=== PATIENT | male | born 1980 | race Caucasian/White ===

== ENCOUNTER 2018-07-12 09:46 | Inpatient (IN) | payer SELFPAY ==
[~2018-07-12] VITALS: Ht 170.2 cm; Wt 54.9 kg
[2018-07-12] MEDS ORDERED: SODIUM CHLORIDE 0.9% 1,000 ML IV ONE (09:57)
[2018-07-12 10:31] LABS: BASOPHILS % 1.3 % (0.0-2.0); EOSINOPHILS % 1.5 % (0.0-5.0); HEMATOCRIT. 34.4 % (42.0-52.0); LYMPHOCYTES % 11.1 % (20.0-50.0); MEAN CORPUSCULAR HEMOGLOBIN 33.9 pg (28.0-32.0); MEAN CORPUSCULAR VOLUME 96.9 fL (80.0-94.0); MEAN PLATELET VOLUME 8.5 fl (7.4-10.4); MONOCYTES % 4.1 % (2.0-8.0); PLATELET 64 x1000/uL (130-400); RED BLOOD CELL COUNT 3.55 mill/uL (4.7-6.1)
[2018-07-12 10:40] LABS: INR 1.2; PROTHROMBIN TIME 11.6 sec (9.1-11.1)
[2018-07-12 11:47] LABS: CHLORIDE 99 mEq/L (98-107)
[2018-07-12 11:53] LABS: ETHANOL BLOOD 256 mg/dL
[2018-07-12 13:13] LABS: HEMATOCRIT 31.5 % (42.0-52.0); MEAN CORPUSCULAR HEMOGLOBIN 34.1 pg (28.0-32.0); MEAN CORPUSCULAR VOLUME 97.6 fL (80.0-94.0); RED BLOOD CELL COUNT 3.22 mill/uL (4.7-6.1); RED CELL DISTRIBUTION WIDTH 15.9 % (11.6-14.6)
[2018-07-12 13:20] LABS: PLATELET 42 x1000/uL (130-400)
[2018-07-12 13:33] LABS: HEMATOCRIT 31.9 % (42.0-52.0); HEMOGLOBIN 11.3 g/dL (14.0-18.0); MEAN CORPUSCULAR VOLUME 96.2 fL (80.0-94.0); RED BLOOD CELL COUNT 3.32 mill/uL (4.7-6.1); RED CELL DISTRIBUTION WIDTH 15.8 % (11.6-14.6)
[2018-07-12] MEDS ORDERED: MAGNESIUM/ALUMINUM HYDROXIDE/SIMETHICONE 30ML UDC PO PRN (17:00)
[2018-07-12] MEDS: DEXT 5%/0.45% NACL 1000ML 1,000 ML IV SCH (17:46)
[2018-07-12] MEDS ORDERED: HYDROMORPHONE HCL/PF 2MG/ML CPJ IV PRN (21:00)
[2018-07-13] VITALS: BP 141/88
[2018-07-13] MEDS: DEXT 5%/0.45% NACL 1000ML 1,000 ML IV SCH ×3 (00:07→14:11)
[2018-07-13] MEDS: LORAZEPAM 2MG/ML CPJ IV PRN ×2 (01:55→22:24)
[2018-07-13 04:00] VITALS: BP 118/77
[2018-07-13 04:57] LABS: *AMPHETAMINES SCREEN URINE NEGATIVE (NEGATIVE)
[2018-07-13 04:58] LABS: *BARBITURATES SCREEN URINE NEGATIVE (NEGATIVE); *BENZODIAZEPINES SCREEN URINE PRESUMTIVE POSITIVE (NEGATIVE); *COCAINE SCREEN URINE NEGATIVE (NEGATIVE); METHADONE URINE SCREEN NEGATIVE (NEGATIVE); OPIATES URINE SCREEN NEGATIVE (NEGATIVE); PHENCYCLIDINE URINE SCREEN NEGATIVE (NEGATIVE)
[2018-07-13 04:59] LABS: CANNABINOID URINE SCREEN NEGATIVE (NEGATIVE)
[2018-07-13 06:47] LABS: BASOPHILS % 0.9 % (0.0-2.0); EOSINOPHILS % 1.3 % (0.0-5.0); HEMATOCRIT. 31.7 % (42.0-52.0); HEMOGLOBIN. 11.2 g/dL (14.0-18.0); LYMPHOCYTES % 12.2 % (20.0-50.0); MEAN CORPUSCULAR HEMOGLOBIN 34.1 pg (28.0-32.0); MEAN CORPUSCULAR VOLUME 96.9 fL (80.0-94.0); MONOCYTES % 7.2 % (2.0-8.0); NEUTROPHILS % 78.4 % (40.0-76.0); RED BLOOD CELL COUNT 3.27 mill/uL (4.7-6.1); RED CELL DISTRIBUTION WIDTH 15.6 % (11.6-14.6)
[2018-07-13 07:06] LABS: CHLORIDE 96 mEq/L (98-107)
[2018-07-13 07:17] LABS: PHOSPHORUS 2.4 mg/dL (2.5-4.9)
[2018-07-13 07:38] LABS: PLATELET 41 x1000/uL (130-400)
[2018-07-13 08:00] VITALS: BP 122/87
[2018-07-13] MEDS: PANTOPRAZOLE SODIUM 40 MG/VIAL IV SCH (08:47)
[2018-07-13] MEDS: POTASSIUM CHLORIDE 20MEQ TABLET SR PO SCH (10:42)
[2018-07-13 12:00] VITALS: BP 134/81
[2018-07-13] MEDS ORDERED: MAGNESIUM 2 G PREMIX 50 ML IV NR (12:00)
[2018-07-13 16:00] VITALS: BP 129/89
[2018-07-13 20:00] VITALS: BP 122/82
[2018-07-14] VITALS (73 sets, daily range): BP systolic 101–190; BP diastolic 28–101
[2018-07-14] MEDS: LORAZEPAM 2MG/ML CPJ IV PRN ×4 (02:57→09:32)
[2018-07-14] MEDS ORDERED: HALOPERIDOL LACTATE 5MG/ML VIAL IM NR (03:30)
[2018-07-14] MEDS: MORPHINE SULFATE 4 MG/ML CPJ (NOT FOR IM USE) IV PRN (03:33)
[2018-07-14] MEDS ORDERED: DILTIAZEM HCL 125 MG in DEXT 5% WATER 100 ML IV PRN (04:30)
[2018-07-14] MEDS ORDERED: HALOPERIDOL LACTATE 5MG/ML VIAL IM PRN (07:15)
[2018-07-14] MEDS: DEXT 5%/0.45% NACL 1000ML 1,000 ML IV SCH ×2 (07:58→21:16)
[2018-07-14 08:45] LABS: BASOPHILS % 0.7 % (0.0-2.0); EOSINOPHILS % 2.7 % (0.0-5.0); HEMATOCRIT. 30.3 % (42.0-52.0); HEMOGLOBIN. 10.7 g/dL (14.0-18.0); LYMPHOCYTES % 8.8 % (20.0-50.0); MEAN CORPUSCULAR HEMOGLOBIN 34.3 pg (28.0-32.0); MEAN CORPUSCULAR VOLUME 97.2 fL (80.0-94.0); MEAN PLATELET VOLUME 8.7 fl (7.4-10.4); MONOCYTES % 6.7 % (2.0-8.0); NEUTROPHILS % 81.1 % (40.0-76.0); RED BLOOD CELL COUNT 3.12 mill/uL (4.7-6.1); RED CELL DISTRIBUTION WIDTH 15.6 % (11.6-14.6)
[2018-07-14] MEDS ORDERED: MAGNESIUM 2 G PREMIX 50 ML IV SCH (09:00)
[2018-07-14] MEDS ORDERED: POTASSIUM CHLORIDE INJ 40 MEQ in DEXT 5% WATER 250 ML IV SCH (09:00)
[2018-07-14 09:05] LABS: PLATELET 40 x1000/uL (130-400)
[2018-07-14] MEDS: PANTOPRAZOLE SODIUM 40 MG/VIAL IV SCH (09:20)
[2018-07-14] MEDS: THIAMINE HCL 100MG TABLET PO SCH (09:20)
[2018-07-14] MEDS: POTASSIUM CHLORIDE 20MEQ TABLET SR PO SCH (09:22)
[2018-07-14 09:49] LABS: CHLORIDE 106 mEq/L (98-107)
[2018-07-14] MEDS: FOLIC ACID 1 MG, MVI, ADULT NO.1 10 ML in DEXTROSE 5% WATER 1,000 ML IV SCH ×3 (10:26)
[2018-07-14] MEDS: CHLORDIAZEPOXIDE 25MG CAPSULE PO SCH ×2 (14:04→21:16)
[2018-07-14] MEDS: LACTULOSE 20G/30ML UDC PO SCH (18:13)
[2018-07-15] VITALS (43 sets, daily range): BP systolic 85–143; BP diastolic 43–103
[2018-07-15] MEDS: ONDANSETRON HCL 4MG/2ML INJ IV PRN (01:50)
[2018-07-15] MEDS: ACETAMINOPHEN 650MG/20.3ML UDC GT PRN (01:50)
[2018-07-15] MEDS: CHLORDIAZEPOXIDE 25MG CAPSULE PO SCH ×3 (06:03→21:48)
[2018-07-15] MEDS: DEXT 5%/0.45% NACL 1000ML 1,000 ML IV SCH (06:03)
[2018-07-15 06:04] LABS: BASOPHILS % 0.7 % (0.0-2.0); HEMATOCRIT. 30.4 % (42.0-52.0); HEMOGLOBIN. 10.6 g/dL (14.0-18.0); LYMPHOCYTES % 12.2 % (20.0-50.0); MEAN CORPUSCULAR HEMOGLOBIN 34.9 pg (28.0-32.0); MEAN PLATELET VOLUME 8.9 fl (7.4-10.4); MONOCYTES % 8.5 % (2.0-8.0); NEUTROPHILS % 72.6 % (40.0-76.0); PLATELET 58 x1000/uL (130-400); RED BLOOD CELL COUNT 3.04 mill/uL (4.7-6.1); RED CELL DISTRIBUTION WIDTH 15.6 % (11.6-14.6)
[2018-07-15 06:14] LABS: CHLORIDE 109 mEq/L (98-107)
[2018-07-15 06:40] LABS: HEPATITIS B SURFACE ANTIGEN NEGATIVE
[2018-07-15 07:10] LABS: HEPATITIS A AB IGM NEGATIVE (NEGATIVE)
[2018-07-15] MEDS: POTASSIUM CHLORIDE 20MEQ TABLET SR PO SCH (09:10)
[2018-07-15] MEDS: LACTULOSE 20G/30ML UDC PO SCH ×2 (09:10→17:24)
[2018-07-15] MEDS: FOLIC ACID 1 MG, MVI, ADULT NO.1 10 ML in DEXTROSE 5% WATER 1,000 ML IV SCH ×3 (09:10)
[2018-07-15] MEDS: THIAMINE HCL 100MG TABLET PO SCH (09:10)
[2018-07-15] MEDS: PANTOPRAZOLE SODIUM 40 MG/VIAL IV SCH (09:10)
[2018-07-16] VITALS: BP 101/63
[2018-07-16 04:00] VITALS: BP 94/60
[2018-07-16] MEDS: ONDANSETRON HCL 4MG/2ML INJ IV PRN ×3 (04:54→20:53)
[2018-07-16] MEDS: CHLORDIAZEPOXIDE 25MG CAPSULE PO SCH ×3 (05:01→20:48)
[2018-07-16 07:52] LABS: PLATELET 41 x1000/uL (130-400)
[2018-07-16 08:00] VITALS: BP 102/70
[2018-07-16] MEDS: LACTULOSE 20G/30ML UDC PO SCH ×3 (08:58→18:37)
[2018-07-16] MEDS: POTASSIUM CHLORIDE 20MEQ TABLET SR PO SCH (08:58)
[2018-07-16] MEDS: PANTOPRAZOLE SODIUM 40 MG/VIAL IV SCH (08:59)
[2018-07-16] MEDS: ACETAMINOPHEN 650MG/20.3ML UDC GT PRN (10:30)
[2018-07-16] MEDS: MORPHINE SULFATE 4 MG/ML CPJ (NOT FOR IM USE) IV PRN ×2 (10:32→20:53)
[2018-07-16] MEDS: THIAMINE HCL 100MG TABLET PO SCH (10:47)
[2018-07-16 12:00] VITALS: BP 96/58
[2018-07-16] MEDS: FOLIC ACID 1 MG, MVI, ADULT NO.1 10 ML in DEXTROSE 5% WATER 1,000 ML IV SCH ×3 (13:08)
[2018-07-16 16:00] VITALS: BP 99/72
[2018-07-16] MEDS: LEVOFLOXACIN 500MG PREMIX 100 ML IV SCH (18:37)
[2018-07-16 20:00] VITALS: BP 107/80
[2018-07-17] VITALS: BP 102/68
[2018-07-17 04:00] VITALS: BP 102/68
[2018-07-17] MEDS: CHLORDIAZEPOXIDE 25MG CAPSULE PO SCH ×2 (06:10→14:56)
[2018-07-17 08:00] VITALS: BP 107/65
[2018-07-17] MEDS: POTASSIUM CHLORIDE 20MEQ TABLET SR PO SCH (09:53)
[2018-07-17] MEDS: LACTULOSE 20G/30ML UDC PO SCH ×2 (09:53→13:00)
[2018-07-17] MEDS: FAMOTIDINE 20MG/2ML VIAL IV SCH ×2 (09:53→20:58)
[2018-07-17] MEDS: THIAMINE HCL 100MG TABLET PO SCH (09:54)
[2018-07-17] MEDS: FOLIC ACID 1 MG, MVI, ADULT NO.1 10 ML in DEXTROSE 5% WATER 1,000 ML IV SCH ×3 (10:22)
[2018-07-17 12:00] VITALS: BP 93/59
[2018-07-17 16:00] VITALS: BP 105/67
[2018-07-17] MEDS: LEVOFLOXACIN 500MG PREMIX 100 ML IV SCH (17:46)
[2018-07-17 20:00] VITALS: BP 116/75
[2018-07-17] MEDS: CHLORDIAZEPOXIDE 5 MG CAPSULE PO SCH (20:58)
[2018-07-18] VITALS: BP 102/70
[2018-07-18 04:00] VITALS: BP 118/78
[2018-07-18] MEDS: CHLORDIAZEPOXIDE 5 MG CAPSULE PO SCH (06:49)
[2018-07-18 08:00] VITALS: BP_SYST 102; BP_SYST 96; BP_DIAS 74
[2018-07-18 08:07] LABS: HEMATOCRIT. 34.3 % (42.0-52.0); HEMOGLOBIN. 11.7 g/dL (14.0-18.0); MEAN CORPUSCULAR HEMOGLOBIN 34.9 pg (28.0-32.0); MEAN CORPUSCULAR VOLUME 102.1 fL (80.0-94.0); MEAN PLATELET VOLUME 8.1 fl (7.4-10.4); PLATELET 227 x1000/uL (130-400); RED BLOOD CELL COUNT 3.36 mill/uL (4.7-6.1); RED CELL DISTRIBUTION WIDTH 17.1 % (11.6-14.6)
[2018-07-18 08:19] LABS: CHLORIDE 102 mEq/L (98-107)
[2018-07-18] MEDS: THIAMINE HCL 100MG TABLET PO SCH (09:09)
[2018-07-18] MEDS: FAMOTIDINE 20MG/2ML VIAL IV SCH (09:09)
[2018-07-18] MEDS: FOLIC ACID 1 MG, MVI, ADULT NO.1 10 ML in DEXTROSE 5% WATER 1,000 ML IV SCH ×3 (09:31)
[2018-07-18] MEDS ORDERED: POTASSIUM CHLORIDE 20MEQ TABLET SR PO SCH (10:00)
[2018-07-18 12:00] VITALS: BP 108/72
[2018-07-18 12:28] VITALS: BP 108/72
[2018-07-18 16:04] LABS: PLATELET ESTIMATE NORMAL
[2018-07-18] MEDS ORDERED: LEVOFLOXACIN 500MG TABLET PO SCH (17:00)
== END 2018-07-18 13:50 | disposition home or self-care (01) | DRG 816 ==
LOC: ER 09:46 → 7WST 14:09 → EDBEDREQ 14:12 → ENRESERV 22:28 → 7WST 07-13 01:08 → MICUNO 07-14 05:00 → 6EST 07-15 17:58
PROVIDERS: ADMIT Internal Medicine Nephrology; ATTEND Internal Medicine Nephrology
DX: T51.0X1A Toxic effect of ethanol, accidental (unintentional), initial encounter (principal); E43 Unspecified severe protein-calorie malnutrition; F10.231 Alcohol dependence with withdrawal delirium; K92.0 Hematemesis; D68.9 Coagulation defect, unspecified; D69.59 Other secondary thrombocytopenia; E87.1 Hypo-osmolality and hyponatremia; K70.0 Alcoholic fatty liver; K72.90 Hepatic failure, unspecified without coma; D53.9 Nutritional anemia, unspecified; D63.8 Anemia in other chronic diseases classified elsewhere; Y90.7 Blood alcohol level of 200-239 mg/100 ml; E87.6 Hypokalemia; Z59.0 Homelessness; Z71.41 Alcohol abuse counseling and surveillance of alcoholic; Z68.1 Body mass index [BMI] 19.9 or less, adult; Y92.89 Other specified places as the place of occurrence of the external cause
CPT/HCPCS: 36415; 76700; 80048; 80076; 80305; 82140; 82248; 82962; 83735; 84100; 84484; 85027; 86705; 86709; 86803; 86850; 86900; 87340; 96360; 96361; 97116; 97162; 99285; C9113; G0482; J1170; J1630; J1956; J2060; J2270; J2405; J3475; J3480; J3490; J7030; J7060; J7070; A4315

== ENCOUNTER 2019-06-18 11:08 | Emergency (ER) | payer MEDICAID ==
[~2019-06-18] VITALS: Ht 170.2 cm; Wt 55.0 kg
[2019-06-18 11:48] VITALS: BP 95/59
== END 2019-06-18 13:19 | disposition home or self-care (01) ==
LOC: ER 11:08
DX: S51.812D Laceration without foreign body of left forearm, subsequent encounter (principal); F10.20 Alcohol dependence, uncomplicated; X58.XXXD Exposure to other specified factors, subsequent encounter; Y90.9 Presence of alcohol in blood, level not specified
CPT/HCPCS: 99281

== ENCOUNTER 2019-06-25 11:35 | Emergency (ER) | payer MEDICAID ==
[~2019-06-25] VITALS: Ht 162.6 cm; Wt 69.0 kg
[2019-06-25 12:02] VITALS: BP 114/72
== END 2019-06-25 13:03 | disposition home or self-care (01) ==
LOC: ER 11:35
DX: S51.812D Laceration without foreign body of left forearm, subsequent encounter (principal); F10.20 Alcohol dependence, uncomplicated; X58.XXXD Exposure to other specified factors, subsequent encounter; Y90.9 Presence of alcohol in blood, level not specified
CPT/HCPCS: 99281